=== PATIENT | female | born 2000 ===

== ENCOUNTER 2018-08-14 05:22 | Inpatient (IN) | payer MEDICAID ==
[2018-08-14] MEDS ORDERED: Sodium Chloride 0.9% 10 ML SDV IV PRN (05:41)
[2018-08-14] MEDS ORDERED: Citric Acid/Sodium Citrate Solution 30 ML Cup PO ONE (05:41)
[2018-08-14] MEDS ORDERED: ceFAZolin 2 GM in Premix Bag 1 BAG IV ONE (05:41)
[2018-08-14] MEDS ORDERED: Sodium Chloride 0.9% 10 ML Syringe FLUSH PRN (05:41)
[2018-08-14] MEDS ORDERED: Oxytocin/0.9 % Sodium Chloride 30 UNIT/500 ML BAG IV SCH (05:45)
[2018-08-14] MEDS: Lactated Ringers 1,000 ML IV ONE ×2 (05:57→06:58)
--- NOTE | 2018-08-14 06:47 | PCM.PREANE ---
Preanesthetic Assessment - Anesthesia/Transfusion/Family Hx Anesthesia History: Prior Anesthesia Without Reaction Family History of Anesthesia Reaction: No Transfusion History: No Prior Transfusion(s) Intubation History: Unknown - Review of Systems General: No Symptoms Pulmonary: No Symptoms Cardiovascular: No Symptoms Gastrointestinal: No Symptoms Neurological: No Symptoms Other: Reports: None - Physical Assessment Height: 5 ft 2 in Weight: 100.244 kg ASA Class: 2 Mental Status: Alert & Oriented x3 Airway Class: Mallampati = 2 Dentition: Reports: Normal Dentition Thyro-Mental Finger Breadths: 3 Mouth Opening Finger Breadths: 3 ROM/Head Extension: Full Lungs: Clear to Auscultation, Normal Respiratory Effort Cardiovascular: Regular Rate, Regular Rhythm - Lab Values: Laboratory Last Values WBC 8.63 K/uL (4.0-11.0) 08/14/18 05:45 RBC 3.99 M/uL (4.30-5.90) L 08/14/18 05:45 Hgb 10.0 g/dL (12.0-16.0) L 08/14/18 05:45 Hct 32.4 % (36.0-46.0) L 08/14/18 05:45 MCV 81.2 fL (80.0-98.0) 08/14/18 05:45 MCH 25.1 pg (27.0-32.0) L 08/14/18 05:45 MCHC 30.9 g/dL (31.0-37.0) L 08/14/18 05:45 RDW Std Deviation 47.2 fl (28.0-62.0) 08/14/18 05:45 RDW Coeff of Cat 16 % (11.0-15.0) H 08/14/18 05:45 Plt Count 246 K/uL (150-400) 08/14/18 05:45 MPV 10.30 fL (7.40-12.00) 08/14/18 05:45 Nucleated RBC % 0.0 /100WBC 08/14/18 05:45 Nucleated RBCs # 0 K/uL 08/14/18 05:45 - Allergies Allergies/Adverse Reactions: Allergies Allergy/AdvReac Type Severity Reaction Status Date / Time No Known Allergies Allergy Verified 08/10/18 08:21 - Blood Blood Available: No - Anesthesia Plan Pre-Op Medication Ordered: None - Acknowledgements Anesthesia Type Planned: Spinal (general anesthesia back-up plan) Pt an Appropriate Candidate for the Planned Anesthesia: Yes Alternatives and Risks of Anesthesia Discussed w Pt/Guardian: Yes Pt/Guardian Understands and Agrees with Anesthesia Plan: Yes PreAnesthesia Questionnaire HEENT History: Reports: None Cardiovascular History: Reports: None Respiratory History: Reports: None Gastrointestinal History: Reports: GERD Other Gastrointestinal History: heartburn and reflux with Genitourinary History: Reports: None 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: Musculoskeletal History: Reports: None Neurological History: Reports: None Psychiatric History: Reports: None Endocrine/Metabolic History: Reports: Obesity/BMI 30+ Hematologic History: Reports: None Immunologic History: Reports: None Oncologic (Cancer) History: Reports: None Dermatologic History: Reports: None - Past Surgical History Head Surgeries/Procedures: Reports: None HEENT Surgical History: Reports: None Cardiovascular Surgical History: Reports: None Respiratory Surgical History: Reports: None GI Surgical History: Reports: None Female Surgical History: Reports: Section Endocrine Surgical History: Reports: None Neurological Surgical History: Reports: None Musculoskeletal Surgical History: Reports: None Oncologic Surgical History: Reports: None Dermatological Surgical History: Reports: None - SUBSTANCE USE Smoking Status *Q: Never Smoker Tobacco Use Within Last Twelve Months: No Second Hand Smoke Exposure: Yes Recreational Drug Use History: No - HOME MEDS Home Medications: Home Meds Calcium Carbonate [Tums] 1 tab.chew CHEW ASDIRECTED PRN 08/10/18 [History] PNV95/Ferrous Fumarate/FA [ Vitamin Tablet] 1 tab PO DAILY 08/10/18 [ History] - CURRENT (IN HOUSE) MEDS Current Meds: Current Medications Lactated Ringer's (Ringers, Lactated) 1,000 mls @ 500 mls/hr IV BOLUS ONE Stop: 08/14/18 07:44 Last Admin: 08/14/18 05:57 Dose: 500 mls/hr Oxytocin/Sodium Chloride (Oxytocin 30 Unit/500 Ml-Ns) 30 unit in 500 mls @ 250 mls/hr IV TITRATE CARINA Sodium Chloride (Saline Flush) 10 ml FLUSH ASDIRECTED PRN PRN Reason: Keep Vein Open Sodium Chloride (Normal Saline) 10 ml IV ASDIRECTED PRN PRN Reason: IV Use Discontinued Medications Citric Acid/Sodium Citrate (Bicitra Solution) 30 ml PO ONETIME ONE Stop: 08/14/18 05:42 Cefazolin Sodium/Dextrose 2 gm (/ Premix) 50 mls @ 100 mls/hr IV ONETIME ONE Stop: 08/14/18 06:10
[2018-08-14] MEDS ORDERED: Octyl 2-Cyanoacrylate 1 Tube ONE (07:17)
[2018-08-14] MEDS ORDERED: Morphine PF 10 MG/10 ML SDV ONE (07:22)
[2018-08-14] MEDS ORDERED: Oxytocin 10 Units/1 ML SDV ONE ×3 (07:23→08:21)
[2018-08-14] MEDS ORDERED: Naloxone 0.4 MG/ML Syringe IVPUSH PRN (07:47)
[2018-08-14] MEDS ORDERED: Nalbuphine 10 MG/1 ML Vial IVPUSH PRN (07:47)
[2018-08-14] MEDS ORDERED: Acetaminophen/oxyCODONE 325-5 MG Tab PO PRN ×2 (07:47→08:28)
[2018-08-14] MEDS ORDERED: diphenhydrAMINE 50 MG/ML SDV IVPUSH PRN ×2 (07:47→08:28)
[2018-08-14] MEDS ORDERED: fentaNYL 100 MCG/2 ML SDV IVPUSH PRN (07:47)
[2018-08-14] MEDS ORDERED: Ondansetron 4 MG/2 ML SDV IVPUSH PRN ×2 (07:47→08:28)
--- NOTE | 2018-08-14 07:49 | PCM.LDHP ---
L&D History of Present Illness - General Date of Service: 08/14/18 Admit Problem/Dx: Patient Status Order with Admit Dx/Problem 08/14/18 05:41 Patient Status [ADT] Routine Admission Diagnosis/Problem Admission Diagnosis/Problem - planned Source of Information: Patient History Limitations: Reports: No Limitations - History of Present Illness Improves with: Reports: None Worsens with: Reports: None Associated Symptoms: Reports: N - Related Data Allergies/Adverse Reactions: Allergies Allergy/AdvReac Type Severity Reaction Status Date / Time No Known Allergies Allergy Verified 08/10/18 08:21 Home Medications: Home Meds Calcium Carbonate [Tums] 1 tab.chew CHEW ASDIRECTED PRN 08/10/18 [History] PNV95/Ferrous Fumarate/FA [ Vitamin Tablet] 1 tab PO DAILY 08/10/18 [ History] Past Medical History HEENT History: Reports: None Cardiovascular History: Reports: None Respiratory History: Reports: None Gastrointestinal History: Reports: GERD Other Gastrointestinal History: heartburn and reflux with Genitourinary History: Reports: None 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: Musculoskeletal History: Reports: None Neurological History: Reports: None Psychiatric History: Reports: None Endocrine/Metabolic History: Reports: Obesity/BMI 30+ Hematologic History: Reports: None Immunologic History: Reports: None Oncologic (Cancer) History: Reports: None Dermatologic History: Reports: None - Past Surgical History Head Surgeries/Procedures: Reports: None HEENT Surgical History: Reports: None Cardiovascular Surgical History: Reports: None Respiratory Surgical History: Reports: None GI Surgical History: Reports: None Female Surgical History: Reports: Section Endocrine Surgical History: Reports: None Neurological Surgical History: Reports: None Musculoskeletal Surgical History: Reports: None Oncologic Surgical History: Reports: None Dermatological Surgical History: Reports: None Social & Family History - Tobacco Use Smoking Status *Q: Never Smoker Second Hand Smoke Exposure: Yes - Caffeine Use Caffeine Use: Reports: Coffee, Soda - Recreational Drug Use Recreational Drug Use: No H&P Review of Systems - Review of Systems: Review Of Systems: See Below General: Reports: No Symptoms HEENT: Reports: No Symptoms Pulmonary: Reports: No Symptoms Cardiovascular: Reports: No Symptoms Gastrointestinal: Reports: No Symptoms Genitourinary: Reports: No Symptoms Musculoskeletal: Reports: No Symptoms Skin: Reports: No Symptoms Psychiatric: Reports: No Symptoms Neurological: Reports: No Symptoms Hematologic/Lymphatic: Reports: No Symptoms Immunologic: Reports: No Symptoms L&D Exam - Exam Exam: See Below - Vital Signs Weight: 100.244 kg - OB Specific Fundal Height In cm: 38 Contraction Intensity: Mild Movement: Active Heart Tones: Present Presentation: Vertex - Exam General: Alert, Oriented HEENT: PERRLA, Conjunctiva Clear, EACs Clear, EOMI, Hearing Intact, Mucosa Moist & [place], Nares Patent, Normal Nasal Septum, Posterior Pharynx Clear, TMs Clear Neck: Supple, Trachea Midline Lungs: Clear to Auscultation, Normal Respiratory Effort Cardiovascular: Regular Rate, Regular Rhythm GI/Abdominal Exam: Normal Bowel Sounds, Soft, Non-Tender, No Organomegaly, No Distention, No Abnormal Bruit, No Mass, Pelvis Stable Rectal Exam: Normal Exam, Normal Rectal Tone Genitourinary: Normal external exam, Normal bimanual exam, Normal speculum exam Back Exam: Normal Inspection, Full Range of Motion Extremities: Normal Inspection, Normal Range of Motion, Non-Tender, No Pedal Edema, Normal Capillary Refill Skin: Warm, Dry, Intact Neurological: Cranial Nerves Intact, Reflexes Equal Bilateral Psychiatric: Alert, Normal Affect, Normal Mood - Patient Data Lab Results Last 24 hrs: Laboratory Results - last 24 hr 08/14/18 08/14/18 Range/Units 05:45 05:45 WBC 8.63 (4.0-11.0) K/uL RBC 3.99 L (4.30-5.90) M/uL Hgb 10.0 L (12.0-16.0) g/dL Hct 32.4 L (36.0-46.0) % MCV 81.2 (80.0-98.0) fL MCH 25.1 L (27.0-32.0) pg MCHC 30.9 L (31.0-37.0) g/dL RDW Std Deviation 47.2 (28.0-62.0) fl RDW Coeff of Cat 16 H (11.0-15.0) % Plt Count 246 (150-400) K/uL MPV 10.30 (7.40-12.00) fL Nucleated RBC % 0.0 /100WBC Nucleated RBCs # 0 K/uL Blood Type O POSITIVE Antibody Screen NEGATIVE Result Diagrams: 08/14/18 05:45 Problem List Initiated/Reviewed/Updated: Yes Orders Last 24hrs: Active Orders 24 hr Category Date Time Status Patient Status [ADT] Routine ADT 08/14/18 05:41 Active Bradycardia-Neuroaxis [employer] [RC] ROUTINE Care 08/14/18 07:47 Ordered Non Stress Test [RC] PER UNIT ROUTINE Care 08/14/18 05:41 Active Hypertension-Neuroaxis [employer] [RC] ROUTINE Care 08/14/18 07:47 Ordered Hypotension-Neuroaxis [employer] [RC] ROUTINE Care 08/14/18 07:47 Ordered Notify Provider Vital Signs [RC] PRN Care 08/14/18 05:44 Active Oxygen Therapy [RC] PER UNIT ROUTINE Care 08/14/18 07:47 Ordered Procedure Site Prep Instruct [RC] ASDIRECTED Care 08/14/18 05:41 Active Up ad Valentine [RC] ASDIRECTED Care 08/14/18 05:41 Active Verify Patient Consent Obtain [RC] ASDIRECTED Care 08/14/18 05:41 Active Vital Signs [RC] PER UNIT ROUTINE Care 08/14/18 05:41 Active Vital Signs [RC] Q1H Care 08/14/18 07:47 Ordered Acetaminophen/oxyCODONE [Percocet 325-5 MG] Med 08/14/18 07:47 Ordered 2 tab PO Q6H PRN Nalbuphine [Nubain] Med 08/14/18 07:47 Ordered 5 mg IVPUSH ASDIRECTED PRN Naloxone [Narcan] Med 08/14/18 07:47 Ordered 0.1 mg IVPUSH ONETIME PRN Ondansetron [Zofran] Med 08/14/18 07:47 Ordered 4 mg IVPUSH Q6H PRN Oxytocin/0.9 % Sodium Chloride [Oxytocin 30 Unit/500 ML Med 08/14/18 05:45 Active -NS] 30 unit in 500 ml IV TITRATE Sodium Chloride 0.9% [Normal Saline] Med 08/14/18 05:41 Active 10 ml IV ASDIRECTED PRN Sodium Chloride 0.9% [Saline Flush] Med 08/14/18 05:41 Active 10 ml FLUSH ASDIRECTED PRN diphenhydrAMINE [Benadryl] Med 08/14/18 07:47 Ordered 25 mg IVPUSH Q4H PRN fentaNYL [Sublimaze] Med 08/14/18 07:47 Ordered 50 mcg IVPUSH Q1H PRN Peripheral IV Insertion Adult [OM.PC] Routine Oth 08/14/18 05:41 Ordered Schedule Procedure [COMM] Per Unit Routine Oth 08/14/18 05:41 Ordered Resuscitation Status Routine Resus Stat 08/14/18 05:41 Ordered Medication Orders Oxytocin/Sodium Chloride (Oxytocin 30 Unit/500 Ml-Ns) 30 unit in 500 mls @ 250 mls/hr IV TITRATE CARINA Sodium Chloride (Saline Flush) 10 ml FLUSH ASDIRECTED PRN PRN Reason: Keep Vein Open Sodium Chloride (Normal Saline) 10 ml IV ASDIRECTED PRN PRN Reason: IV Use Assessment/Plan Comment:: IUP39+ admitted for elective repeat C/section.
[2018-08-14] MEDS ORDERED: Ondansetron 4 MG/2 ML SDV ONE (08:10)
[2018-08-14] MEDS ORDERED: Lanolin 100% Cream 7 GM Tube TOP PRN (08:28)
[2018-08-14] MEDS ORDERED: Bisacodyl 10 MG Supp RECTAL PRN (08:28)
[2018-08-14] MEDS ORDERED: Lactated Ringers 1,000 ML IV SCH (08:30)
--- NOTE | 2018-08-14 08:32 | PCM.OPNOTE ---
- General Post-Op/Procedure Note Date of Surgery/Procedure: 08/14/18 Operative Procedure(s): IUP 39+wks Previous C/Section. Pre Op Diagnosis: Repeat C/Sction Post-Op Diagnosis: Same Anesthesia Technique: Spinal Primary Surgeon: Ino Grajeda EBL in mLs: 650 Complications: None Condition: Good
[2018-08-14] MEDS: Ketorolac 30 MG/ML SDV IVPUSH SCH ×3 (08:58→20:53)
[2018-08-14] MEDS: Docusate Sodium 100 MG Cap PO SCH ×2 (09:00→20:53)
[2018-08-14] MEDS ORDERED: Promethazine 25 MG/ML SDV IM ONE (13:05)
--- NOTE | 2018-08-14 13:05 | OR ---
SURGEON: Ino Grajeda MD DATE OF PROCEDURE: PREOPERATIVE DIAGNOSIS: Intrauterine , 39+ weeks, previous section. POSTOPERATIVE DIAGNOSIS: Intrauterine , 39+ weeks, previous section. OPERATION PERFORMED: Repeat low-transverse section. PRIMARY SURGEON: Ino Grajeda MD. CALL CENTRE SUPERVISOR: OR tech. ANESTHESIA: Spinal, Dr. Rawls and Paola Washington. ESTIMATED BLOOD LOSS: 650 mL. COMPLICATIONS: None. FINDINGS: Male fetus. score reported to be 8 and 9. Normal uterus, tubes, and ovary. INDICATION FOR SURGERY: This patient is 17. She had previous section. She is admitted for elective repeat section. PROCEDURE IN DETAIL: The patient brought to the OR, properly identified, and after adequate level of spinal anesthesia with a Thomas catheter in the bladder, the patient was prepped and draped in sterile fashion as usual. Low transverse Pfannenstiel skin incision was done. Heidi's fascia and rectus fascia were opened in direction of the incision. The 2 recti muscles were and peritoneal cavity was entered. Bladder flap was raised in the usual manner, pushing the bladder away from the lower uterine segment. Low transverse uterine incision was done, extending mainly in the anterior as well as vertex position, delivered without any problem, and the nurse resuscitator was present at the time of delivery. The placenta delivered spontaneous, complete, and intact and then repair of the lower uterine segment was done with 2-0 Vicryl continuous interlocking in 2 layers. Reperitonealization done with 3-0 Vicryl continuous and then the peritoneal cavity evacuated completely from all blood and blood clot and closed with 3-0 Vicryl continuous. The rectus fascia was closed with #1 PDS double strand continuous; the Heidi's fascia with 3-0 Vicryl continuous; and the skin closed with skin clips, Insorb, and Dermabond. Instrument and sponge count was correct. The patient tolerated the procedure well, went to recovery room in stable general condition. SIDNEY / EMELY /[id number]
[2018-08-15] MEDS: Ketorolac 30 MG/ML SDV IVPUSH SCH ×2 (02:55→09:21)
--- NOTE | 2018-08-15 08:54 | PCM48HPAN ---
Post Anesthesia Note - EVALUATION WITHIN 48HRS OF ANESTHETIC Vital Signs in Normal Range: Yes Patient Participated in Evaluation: Yes Respiratory Function Stable: Yes Airway Patent: Yes Cardiovascular Function Stable: Yes Hydration Status Stable: Yes Pain Control Satisfactory: Yes Nausea and Vomiting Control Satisfactory: Yes Mental Status Recovered: Yes Pulse Rate: 69 SaO2: 97 (RA) Resp Rate: 17 Temperature: 97.7 F Blood Pressure: 98/50
[2018-08-15] MEDS: Docusate Sodium 100 MG Cap PO SCH ×2 (09:20→21:44)
--- NOTE | 2018-08-15 10:54 | PCM.PNPP ---
- General Info Date of Service: 08/15/18 Functional Status: Reports: Pain Controlled - Review of Systems General: Reports: No Symptoms HEENT: Reports: No Symptoms Pulmonary: Reports: No Symptoms Cardiovascular: Reports: No Symptoms Gastrointestinal: Reports: No Symptoms Genitourinary: Reports: No Symptoms Musculoskeletal: Reports: No Symptoms Skin: Reports: No Symptoms Neurological: Reports: No Symptoms Psychiatric: Reports: No Symptoms - General Info Date of Service: 08/15/18 - Patient Data Vital Signs - Most Recent: Last Vital Signs Temp 36.5 C 08/15/18 08:54 Pulse 69 08/15/18 08:54 Resp 17 08/15/18 08:54 BP 98/50 L 08/15/18 08:54 Pulse Ox 97 08/15/18 08:54 Weight - Most Recent: 100.244 kg I&O - Last 24 Hours: Intake & Output 08/14/18 08/15/18 08/15/18 22:59 06:59 14:59 Intake Total 1000 Output Total 675 1050 Balance -675 -50 Lab Results - Last 24 Hours: Laboratory Results - last 24 hr 08/15/18 Range/Units 05:52 Hgb 8.8 L (12.0-16.0) g/dL Hct 29.3 L (36.0-46.0) % Med Orders - Current: Current Medications Bisacodyl (Dulcolax) 10 mg RECTAL ONETIME PRN PRN Reason: Constipation Diphenhydramine HCl (Benadryl) 25 mg IVPUSH Q6H PRN PRN Reason: Itching or Nausea Docusate Sodium (Colace) 100 mg PO BID [facility] Last Admin: 08/15/18 09:20 Dose: 100 mg Emollient Ointment (Lansinoh Hpa) 0 gm TOP ASDIRECTED PRN PRN Reason: Sore Nipples Fentanyl (Sublimaze) 50 mcg IVPUSH Q1H PRN PRN Reason: Pain (severe 7-10) Oxytocin/Sodium Chloride (Oxytocin 30 Unit/500 Ml-Ns) 30 unit in 500 mls @ 250 mls/hr IV TITRATE [facility] Lactated Ringer's (Ringers, Lactated) 1,000 mls @ 125 mls/hr IV ASDIRECTED [facility] Last Admin: 08/14/18 15:00 Dose: 125 mls/hr Ibuprofen (Motrin) 800 mg PO Q8H PRN PRN Reason: mild pain or fever Nalbuphine HCl (Nubain) 5 mg IVPUSH ASDIRECTED PRN PRN Reason: Itching Ondansetron HCl (Zofran) 4 mg IVPUSH Q6H PRN PRN Reason: Nausea Ondansetron HCl (Zofran) 4 mg IVPUSH Q4H PRN PRN Reason: Nausea/Vomiting Last Admin: 08/14/18 11:49 Dose: 4 mg Oxycodone/Acetaminophen (Percocet 325-5 Mg) 2 tab PO Q6H PRN PRN Reason: Pain (moderate 4-6) Oxycodone/Acetaminophen (Percocet 325-5 Mg) 1 tab PO Q4H PRN PRN Reason: Pain (moderate 4-6) Oxycodone/Acetaminophen (Percocet 325-5 Mg) 2 tab PO Q4H PRN PRN Reason: Pain (moderate 4-6) Sodium Chloride (Saline Flush) 10 ml FLUSH ASDIRECTED PRN PRN Reason: Keep Vein Open Last Admin: 08/14/18 15:02 Dose: 10 ml Sodium Chloride (Normal Saline) 10 ml IV ASDIRECTED PRN PRN Reason: IV Use Discontinued Medications Citric Acid/Sodium Citrate (Bicitra Solution) 30 ml PO ONETIME ONE Stop: 08/14/18 05:42 Last Admin: 08/14/18 20:08 Dose: Not Given Diphenhydramine HCl (Benadryl) 25 mg IVPUSH Q4H PRN PRN Reason: Itching Stop: 08/15/18 07:47 Cefazolin Sodium/Dextrose 2 gm (/ Premix) 50 mls @ 100 mls/hr IV ONETIME ONE Stop: 08/14/18 06:10 Last Admin: 08/14/18 20:07 Dose: Not Given Lactated Ringer's (Ringers, Lactated) 1,000 mls @ 500 mls/hr IV BOLUS ONE Stop: 08/14/18 07:44 Last Admin: 08/14/18 06:58 Dose: 500 mls/hr Ketorolac Tromethamine (Toradol) 30 mg IVPUSH Q6H [facility] Stop: 08/15/18 08:31 Last Admin: 08/15/18 09:21 Dose: 30 mg Morphine Sulfate (Duramorph Pf) Confirm Administered Dose 10 mg .ROUTE .STK-MED ONE Stop: 08/14/18 07:23 Naloxone HCl (Narcan) 0.1 mg IVPUSH ONETIME PRN PRN Reason: Respiratory Depression Stop: 08/15/18 07:47 Octyl Cyanoacrylate (Dermabond Advance) Confirm Administered Dose 1 applic .ROUTE .STK-MED ONE Stop: 08/14/18 07:18 Last Admin: 08/14/18 20:08 Dose: Not Given Ondansetron HCl (Zofran) Confirm Administered Dose 4 mg .ROUTE .STK-MED ONE Stop: 08/14/18 08:11 Oxytocin (Pitocin) Confirm Administered Dose 10 unit .ROUTE .STK-MED ONE Stop: 08/14/18 07:24 Oxytocin (Pitocin) Confirm Administered Dose 10 unit .ROUTE .STK-MED ONE Stop: 08/14/18 07:24 Oxytocin (Pitocin) Confirm Administered Dose 20 unit .ROUTE .STK-MED ONE Stop: 08/14/18 08:22 Promethazine HCl (Phenergan) 12.5 mg IM ONETIME ONE Stop: 08/14/18 13:06 Last Admin: 08/14/18 13:36 Dose: 12.5 mg - Infant Interaction Disposition, : in Room with Family Interaction: Holding Feeding: Attempted ; Nursed Fair/Poor Support Person: - Recovery Exam Fundal Tone: Firm Fundal Level: 1 Fingerbreadths Below Umbilicus Fundal Placement: Midline Lochia Amount: Scant Lochia Color: Rubra/Red Perineum Description: Intact, Minimal Bruising/Swelling Episiotomy/Laceration: None Bladder Status: Voiding Urinary Elimination: Voided - Exam General: Alert, Oriented HEENT: Pupils Equal Neck: Supple Lungs: Clear to Auscultation, Normal Respiratory Effort Cardiovascular: Regular Rate, Regular Rhythm GI/Abdominal Exam: Normal Bowel Sounds, Soft, Non-Tender, No Organomegaly, No Distention, No Abnormal Bruit, No Mass, Pelvis Stable Extremities: Normal Inspection, Normal Range of Motion, Non-Tender, No Pedal Edema, Normal Capillary Refill Skin: Warm, Dry, Intact Wound/Incisions: Healing Well Neurological: No New Focal Deficit Psy/Mental Status: Alert, Normal Affect, Normal Mood - Problem List Review Problem List Initiated/Reviewed/Updated: Yes - Assessment Assessment:: S/P C/section doing well. - Plan Plan:: IUP39+ admitted for elective repeat C/section.
[2018-08-15] MEDS: Acetaminophen/oxyCODONE 325-5 MG Tab PO PRN (16:13)
[2018-08-15] MEDS: Ibuprofen 800 MG Tab PO PRN (22:50)
[2018-08-16] MEDS: Acetaminophen/oxyCODONE 325-5 MG Tab PO PRN (02:45)
[2018-08-16] MEDS: Docusate Sodium 100 MG Cap PO SCH (08:15)
[2018-08-16] MEDS: Ibuprofen 800 MG Tab PO PRN (08:15)
--- NOTE | 2018-08-16 11:19 | PCM.DCSUM1 ---
Discharge Summary - Hospital Course Diagnosis: Stroke: No - Discharge Data Discharge Date: 08/16/18 Discharge Disposition: Home, Self-Care 01 Condition: Good - Patient Summary/Data Operative Procedure(s) Performed: IUP 39+wks Previous C/Section. - Patient Instructions Activity: As Tolerated Driving: Do Not Drive Showering/Bathing: May Shower - Discharge Plan Home Medications: Home Meds Calcium Carbonate [Tums] 1 tab.chew CHEW ASDIRECTED PRN 08/10/18 [History] PNV95/Ferrous Fumarate/FA [ Vitamin Tablet] 1 tab PO DAILY 08/10/18 [ History] Patient Handouts: Delivery, Care After Referrals: [facility] [Outside] Ino Grajeda MD [Physician] - (1 week- August 21 @ 1:30pm w/ Dr. Grajeda 6 week- September 25 @3:00pm w/ Dr. Grajeda ) - Discharge Summary/Plan Comment DC Time >30 min.: Yes - General Info Date of Service: 08/16/18 Functional Status: Reports: Pain Controlled - Review of Systems General: Reports: No Symptoms HEENT: Reports: No Symptoms Pulmonary: Reports: No Symptoms Cardiovascular: Reports: No Symptoms Gastrointestinal: Reports: No Symptoms Genitourinary: Reports: No Symptoms Musculoskeletal: Reports: No Symptoms Skin: Reports: No Symptoms Neurological: Reports: No Symptoms Psychiatric: Reports: No Symptoms - Patient Data Vitals - Most Recent: Last Vital Signs Temp 36.2 C 08/16/18 04:00 Pulse 69 08/16/18 04:00 Resp 15 08/16/18 04:00 BP 109/60 08/16/18 04:00 Pulse Ox 92 L 08/16/18 04:00 Weight - Most Recent: 100.244 kg Med Orders - Current: Current Medications Bisacodyl (Dulcolax) 10 mg RECTAL ONETIME PRN PRN Reason: Constipation Diphenhydramine HCl (Benadryl) 25 mg IVPUSH Q6H PRN PRN Reason: Itching or Nausea Docusate Sodium (Colace) 100 mg PO BID CARINA Last Admin: 08/16/18 08:15 Dose: 100 mg Emollient Ointment (Lansinoh Hpa) 0 gm TOP ASDIRECTED PRN PRN Reason: Sore Nipples Fentanyl (Sublimaze) 50 mcg IVPUSH Q1H PRN PRN Reason: Pain (severe 7-10) Oxytocin/Sodium Chloride (Oxytocin 30 Unit/500 Ml-Ns) 30 unit in 500 mls @ 250 mls/hr IV TITRATE CARINA Lactated Ringer's (Ringers, Lactated) 1,000 mls @ 125 mls/hr IV ASDIRECTED CARINA Last Admin: 08/14/18 15:00 Dose: 125 mls/hr Ibuprofen (Motrin) 800 mg PO Q8H PRN PRN Reason: mild pain or fever Last Admin: 08/16/18 08:15 Dose: 800 mg Nalbuphine HCl (Nubain) 5 mg IVPUSH ASDIRECTED PRN PRN Reason: Itching Ondansetron HCl (Zofran) 4 mg IVPUSH Q6H PRN PRN Reason: Nausea Ondansetron HCl (Zofran) 4 mg IVPUSH Q4H PRN PRN Reason: Nausea/Vomiting Last Admin: 08/14/18 11:49 Dose: 4 mg Oxycodone/Acetaminophen (Percocet 325-5 Mg) 2 tab PO Q6H PRN PRN Reason: Pain (moderate 4-6) Oxycodone/Acetaminophen (Percocet 325-5 Mg) 1 tab PO Q4H PRN PRN Reason: Pain (moderate 4-6) Last Admin: 08/15/18 21:43 Dose: 1 tab Oxycodone/Acetaminophen (Percocet 325-5 Mg) 2 tab PO Q4H PRN PRN Reason: Pain (moderate 4-6) Last Admin: 08/16/18 02:45 Dose: 2 tab Sodium Chloride (Saline Flush) 10 ml FLUSH ASDIRECTED PRN PRN Reason: Keep Vein Open Last Admin: 08/14/18 15:02 Dose: 10 ml Sodium Chloride (Normal Saline) 10 ml IV ASDIRECTED PRN PRN Reason: IV Use Discontinued Medications Citric Acid/Sodium Citrate (Bicitra Solution) 30 ml PO ONETIME ONE Stop: 08/14/18 05:42 Last Admin: 08/14/18 20:08 Dose: Not Given Diphenhydramine HCl (Benadryl) 25 mg IVPUSH Q4H PRN PRN Reason: Itching Stop: 08/15/18 07:47 Cefazolin Sodium/Dextrose 2 gm (/ Premix) 50 mls @ 100 mls/hr IV ONETIME ONE Stop: 08/14/18 06:10 Last Admin: 08/14/18 20:07 Dose: Not Given Lactated Ringer's (Ringers, Lactated) 1,000 mls @ 500 mls/hr IV BOLUS ONE Stop: 08/14/18 07:44 Last Admin: 08/14/18 06:58 Dose: 500 mls/hr Ketorolac Tromethamine (Toradol) 30 mg IVPUSH Q6H CARINA Stop: 08/15/18 08:31 Last Admin: 08/15/18 09:21 Dose: 30 mg Morphine Sulfate (Duramorph Pf) Confirm Administered Dose 10 mg .ROUTE .STK-MED ONE Stop: 08/14/18 07:23 Naloxone HCl (Narcan) 0.1 mg IVPUSH ONETIME PRN PRN Reason: Respiratory Depression Stop: 08/15/18 07:47 Octyl Cyanoacrylate (Dermabond Advance) Confirm Administered Dose 1 applic .ROUTE .STK-MED ONE Stop: 08/14/18 07:18 Last Admin: 08/14/18 20:08 Dose: Not Given Ondansetron HCl (Zofran) Confirm Administered Dose 4 mg .ROUTE .STK-MED ONE Stop: 08/14/18 08:11 Oxytocin (Pitocin) Confirm Administered Dose 10 unit .ROUTE .STK-MED ONE Stop: 08/14/18 07:24 Oxytocin (Pitocin) Confirm Administered Dose 10 unit .ROUTE .STK-MED ONE Stop: 08/14/18 07:24 Oxytocin (Pitocin) Confirm Administered Dose 20 unit .ROUTE .STK-MED ONE Stop: 08/14/18 08:22 Promethazine HCl (Phenergan) 12.5 mg IM ONETIME ONE Stop: 08/14/18 13:06 Last Admin: 08/14/18 13:36 Dose: 12.5 mg - Exam General: Reports: Alert, Oriented HEENT: Reports: Pupils Equal, Pupils Reactive, EOMI, Mucous Membr. Moist/[place] Neck: Reports: Supple Lungs: Reports: Clear to Auscultation, Normal Respiratory Effort Cardiovascular: Reports: Regular Rate, Regular Rhythm GI/Abdominal Exam: Normal Bowel Sounds, Soft, Non-Tender, No Organomegaly, No Distention, No Abnormal Bruit, No Mass, Pelvis Stable (Female) Exam: Normal External Exam, Normal Speculum Exam, Normal Bimanual Exam Rectal (Female) Exam: Normal Exam, Normal Rectal Tone Back Exam: Reports: Normal Inspection, Full Range of Motion Extremities: Normal Inspection, Normal Range of Motion, Non-Tender, No Pedal Edema, Normal Capillary Refill Skin: Reports: Warm, Dry, Intact Wound/Incisions: Reports: Healing Well Neurological: Reports: No New Focal Deficit Psy/Mental Status: Reports: Alert, Normal Affect, Normal Mood
== END 2018-08-16 11:54 | disposition home or self-care (01) | DRG 788 ==
LOC: MW.OB 05:22 → MW.OBCHECK 05:22 → MW.OB 05:41 → EDSTATUS 07:30 → MW.OB 18:30
PROVIDERS: ADMIT Obstetrics & Gynecology; ATTEND Obstetrics & Gynecology
PROC: 10D00Z1 Extraction of Products of Conception, Low, Open Approach (ICD-10-PCS; principal; 2018-08-14)
DX: O34.211 Maternal care for low transverse scar from previous cesarean delivery (principal); O99.214 Obesity complicating childbirth; E66.9 Obesity, unspecified; Z37.0 Single live birth; Z3A.39 39 weeks gestation of pregnancy
CPT/HCPCS: 36415; 59025; 85014; 85018; 85027; 86850; 86900; 86901; A9270-GY; J1885; J2270; J2405; J2550; J2590; J7120